=== PATIENT | male | born 1985 | race Two or more races ===

== ENCOUNTER 2024-06-02 13:32 | Emergency (ER) | payer OTHER ==
[~2024-06-02] VITALS: Ht 182.9 cm; Wt 96.2 kg
[2024-06-02] MEDS ORDERED: TOPROL XL25 M1 (13:33)
[2024-06-02] MEDS ORDERED: PAXIL30 MG (13:34)
[2024-06-02] MEDS ORDERED: KETOROLAC TROMETHAMINE 60 MG VIAL IM ONE (14:00)
[2024-06-02] MEDS ORDERED: TRIAMCINOLONE ACETONIDE 40 MG/ML VIAL IM ONE (14:00)
== END 2024-06-02 14:13 | disposition home or self-care (01) ==
LOC: ER 13:33
DX: H92.02 Otalgia, left ear (principal); I10 Essential (primary) hypertension